=== PATIENT | male | born 1995 | race African-American/Black ===

== ENCOUNTER 2018-06-22 12:49 | Emergency (ER) | payer SELFPAY ==
[~2018-06-22] VITALS: Ht 188 cm; Wt 77.0 kg
[2018-06-22 13:00] VITALS: BP 118/60
[2018-06-22] MEDS ORDERED: ALBU4TAB6 PO (13:03)
== END 2018-06-22 22:45 | disposition left against medical advice (07) ==
LOC: ER 12:49
DX: Z53.21 Procedure and treatment not carried out due to patient leaving prior to being seen by health care provider (principal)

== ENCOUNTER 2023-03-19 14:15 | Emergency (ER) | payer MEDICAID, OTHER ==
[~2023-03-19] VITALS: Ht 177.8 cm; Wt 75.0 kg
[~2023-03-19 14:15] MED LIST: ALBU4TAB6 PO
[2023-03-19 14:26] VITALS: BP 124/78; PULSE 88; RESP 16; TEMP 98.5; O2SAT 99
[2023-03-19] MEDS ORDERED: BACITRACIN ZINC OINT UDPKT TOP ONE (15:00)
[2023-03-19] MEDS ORDERED: LIDOCAINE HCL/PF 1% 10 MG/ML 5ML VIAL INFIL ONE (15:00)
[2023-03-19] MEDS ORDERED: CEPH500T MT (16:09)
[2023-03-19] MEDS ORDERED: SULF1TAB48 MT (16:09)
[2023-03-19] MEDS ORDERED: IBUPROFEN 600MG TABLET PO ONE (16:15)
== END 2023-03-19 16:24 | disposition home or self-care (01) ==
LOC: ER 14:29
DX: L02.411 Cutaneous abscess of right axilla (principal); J45.909 Unspecified asthma, uncomplicated
CPT/HCPCS: 10060; 99283; J3490; Z7610 ×2

== ENCOUNTER 2023-04-09 15:00 | Emergency (ER) | payer OTHER ==
[~2023-04-09] VITALS: Ht 195.6 cm; Wt 77.0 kg
[~2023-04-09 15:00] MED LIST changes: +CEPH500T MT; +SULF1TAB48 MT
[2023-04-09 15:01] VITALS: BP 102/49; PULSE 79; RESP 16; TEMP 98.1; O2SAT 100
[2023-04-09] MEDS ORDERED: FAMOTIDINE 20MG/2ML VIAL IV ONE (15:15)
[2023-04-09] MEDS ORDERED: ONDANSETRON HCL 4MG/2ML INJ IV ONE (15:15)
[2023-04-09] MEDS ORDERED: SODIUM CHLORIDE 0.9% 1,000 ML IV ONE (15:15)
[2023-04-09 18:22] LABS: BASOPHILS % 0.9 % (0.0-2.0); HEMATOCRIT. 38.5 % (42.0-52.0); HEMOGLOBIN. 12.5 g/dL (14.0-18.0); LYMPHOCYTES % 50.6 % (20.0-50.0); MEAN CORPUSCULAR HGB CONC 32.5 g/dL (31.0-37.0); MEAN CORPUSCULAR VOLUME 92.4 fL (80.0-94.0); MEAN PLATELET VOLUME 8.3 fl (7.4-10.4); MONOCYTES % 7.9 % (2.0-8.0); NEUTROPHILS % 34.6 % (40.0-76.0); PLATELET 194 x1000/uL (130-400); RED BLOOD CELL COUNT 4.16 mill/uL (4.7-6.1); RED CELL DISTRIBUTION WIDTH 13.7 % (11.6-14.6); WHITE BLOOD COUNT 4.7 x1000/uL (4.5-11.0)
[2023-04-09 18:36] LABS: ALANINE AMINOTRANSFERASE 118 IU/L (10-49); ASPARTATE AMINOTRANSFERASE 47 IU/L (<34); BILIRUBIN TOTAL 0.9 mg/dL (0.1-1.0); CARBON DIOXIDE 29 mEq/L (21-32); CHLORIDE 105 mEq/L (98-107); CREATININE 0.9 mg/dL (0.6-1.3); GLUCOSE 88 mg/dL (70-105); POTASSIUM 4.5 mEq/L (3.5-5.1); PROTEIN TOTAL 7.5 g/dL (6.0-8.3); SODIUM 139 mEq/L (136-145); UREA NITROGEN BLOOD 15 mg/dL (9-23)
[2023-04-09 18:37] LABS: ETHANOL BLOOD < 10 mg/dL (<10); TROPONIN I HIGH SENSITIVITY < 4 ng/L (3.0-53)
[2023-04-09 19:20] LABS: BETA HYDROXYBUTYRATE < 0.1 mMol/L (0.0-0.3)
== END 2023-04-09 18:09 | disposition left against medical advice (07) ==
LOC: ER 15:00
DX: R10.13 Epigastric pain (principal); J45.909 Unspecified asthma, uncomplicated
CPT/HCPCS: 80053; 82010; 80320; 82962; 83605; 83690; 85025; 84484; 36415; 99283; J7030; G0480

== ENCOUNTER 2023-05-22 14:10 | Emergency (ER) | payer OTHER ==
[~2023-05-22] VITALS: Ht 188 cm; Wt 82.0 kg
[2023-05-22 14:11] VITALS: O2SAT 100
[2023-05-22] MEDS ORDERED: TETANUS, DIPHTHERIA, PERTUSSIS VAC/PF 0.5ML (>10YR OLD) IM ONE (14:30)
[2023-05-22 14:55] LABS: *AMPHETAMINES SCREEN URINE PRESUMPTIVE POSITIVE (NEGATIVE); *BARBITURATES SCREEN URINE NEGATIVE (NEGATIVE); *BENZODIAZEPINES SCREEN URINE NEGATIVE (NEGATIVE); *COCAINE SCREEN URINE NEGATIVE (NEGATIVE); CANNABINOID URINE SCREEN PRESUMPTIVE POSITIVE (NEGATIVE); ECSTASY MDMA SCREEN URINE CONF.TEST INDICATED (NEGATIVE); METHADONE URINE SCREEN Neg (NEGATIVE); OPIATES URINE SCREEN NEGATIVE (NEGATIVE); PHENCYCLIDINE URINE SCREEN NEGATIVE (NEGATIVE)
[2023-05-22 16:47] LABS: BASOPHILS % 0.8 % (0.0-2.0); HEMATOCRIT. 39.2 % (42.0-52.0); HEMOGLOBIN. 13.3 g/dL (14.0-18.0); LYMPHOCYTES % 63.1 % (20.0-50.0); MEAN CORPUSCULAR HEMOGLOBIN 30.6 pg (28.0-32.0); MEAN CORPUSCULAR HGB CONC 33.9 g/dL (31.0-37.0); MEAN CORPUSCULAR VOLUME 90.1 fL (80.0-94.0); MEAN PLATELET VOLUME 8.8 fl (7.4-10.4); MONOCYTES % 7.9 % (2.0-8.0); NEUTROPHILS % 22.2 % (40.0-76.0); PLATELET 179 x1000/uL (130-400); RED BLOOD CELL COUNT 4.35 mill/uL (4.7-6.1); RED CELL DISTRIBUTION WIDTH 13.7 % (11.6-14.6); WHITE BLOOD COUNT 3.6 x1000/uL (4.5-11.0)
[2023-05-22 17:01] LABS: ACETAMINOPHEN < 2 ug/mL (10-30); ALANINE AMINOTRANSFERASE 25 IU/L (10-49); ALBUMIN 3.9 g/dL (3.2-4.8); ASPARTATE AMINOTRANSFERASE 26 IU/L (<34); CALCIUM 8.8 mg/dL (8.7-10.4); CARBON DIOXIDE 26 mEq/L (21-32); CHLORIDE 103 mEq/L (98-107); CREATININE 1.1 mg/dL (0.6-1.3); GLUCOSE 68 mg/dL (70-105); POTASSIUM 4.1 mEq/L (3.5-5.1); PROTEIN TOTAL 7.3 g/dL (6.0-8.3); SODIUM 138 mEq/L (136-145); UREA NITROGEN BLOOD 17 mg/dL (9-23)
[2023-05-22 17:02] LABS: ETHANOL BLOOD < 10 mg/dL (<10)
[2023-05-22 18:51] VITALS: BP 132/72; PULSE 68; RESP 16; TEMP 98.8
== END 2023-05-23 08:10 | disposition home or self-care (01) ==
LOC: ER 14:10
DX: F15.10 Other stimulant abuse, uncomplicated (principal); J45.909 Unspecified asthma, uncomplicated
CPT/HCPCS: 80053; 80305; 80307; 80329; 80320; 85025; 36415; 90715; 90471; 99291; Z7610; G0480

== ENCOUNTER 2024-06-30 15:05 | Emergency (ER) | payer OTHER ==
[~2024-06-30] VITALS: Ht 195.6 cm; Wt 102.1 kg
[2024-06-30 15:21] VITALS: BP 106/74; PULSE 45; RESP 16; TEMP 36.7; O2SAT 100
== END 2024-06-30 19:43 | disposition left against medical advice (07) ==
LOC: ER 15:05
DX: S60.947A Unspecified superficial injury of left little finger, initial encounter (principal); J45.909 Unspecified asthma, uncomplicated; F12.90 Cannabis use, unspecified, uncomplicated; X58.XXXA Exposure to other specified factors, initial encounter; Y93.89 Activity, other specified; Y92.89 Other specified places as the place of occurrence of the external cause; Y99.8 Other external cause status
CPT/HCPCS: 99281

== ENCOUNTER 2024-06-30 20:28 | Emergency (ER) | payer OTHER ==
[~2024-06-30] VITALS: Ht 195.6 cm; Wt 102.0 kg
[2024-06-30 20:38] VITALS: BP 122/78; PULSE 55; RESP 16; TEMP 36.7; O2SAT 100
== END 2024-06-30 23:46 | disposition left against medical advice (07) ==
LOC: ER 20:28
DX: M79.629 Pain in unspecified upper arm (principal); J45.909 Unspecified asthma, uncomplicated; Z53.21 Procedure and treatment not carried out due to patient leaving prior to being seen by health care provider

== ENCOUNTER 2024-07-18 21:41 | Emergency (ER) | payer OTHER ==
[~2024-07-18] VITALS: Ht 185.4 cm; Wt 102.0 kg
[2024-07-18 21:52] VITALS: BP 123/77; PULSE 81; RESP 18; TEMP 37; O2SAT 98
[2024-07-18 22:38] LABS: BASOPHILS % 0.8 % (0.0-2.0); EOSINOPHILS % 12.5 % (0.0-5.0); HEMATOCRIT. 37.3 % (42.0-52.0); HEMOGLOBIN. 12.3 g/dL (14.0-18.0); MEAN CORPUSCULAR HEMOGLOBIN 29.2 pg (28.0-32.0); MEAN CORPUSCULAR HGB CONC 32.9 g/dL (31.0-37.0); MEAN CORPUSCULAR VOLUME 88.7 fL (80.0-94.0); MEAN PLATELET VOLUME 8.9 fl (7.4-10.4); MONOCYTES % 5.3 % (2.0-8.0); NEUTROPHILS % 23.4 % (40.0-76.0); PLATELET 199 x1000/uL (130-400); RED BLOOD CELL COUNT 4.21 mill/uL (4.7-6.1); RED CELL DISTRIBUTION WIDTH 13.6 % (11.6-14.6); WHITE BLOOD COUNT 4.9 x1000/uL (4.5-11.0)
[2024-07-18 22:44] LABS: CHLORIDE 103 mEq/L (98-107); SODIUM 139 mEq/L (136-145)
[2024-07-18 22:45] LABS: CALCIUM 9.1 mg/dL (8.7-10.4); CARBON DIOXIDE 29 mEq/L (21-32)
[2024-07-18 22:50] LABS: GLUCOSE 98 mg/dL (70-105); UREA NITROGEN BLOOD 12 mg/dL (9-23)
== END 2024-07-19 00:41 | disposition home or self-care (01) ==
LOC: ER 21:41
DX: R05.9 Cough, unspecified (principal); R09.89 Other specified symptoms and signs involving the circulatory and respiratory systems; Z79.899 Other long term (current) drug therapy; F15.90 Other stimulant use, unspecified, uncomplicated
CPT/HCPCS: 36415; 71045; 80048; 85025; 99283; 99284

== ENCOUNTER 2024-09-24 13:58 | Emergency (ER) | payer OTHER ==
[~2024-09-24] VITALS: Ht 182.9 cm; Wt 80.0 kg
[2024-09-24 14:00] VITALS: TEMP 36.9; O2SAT 99
[2024-09-24] MEDS ORDERED: LEVETIRACETAM 1,000MG in NACL 100ML PREMIX IV SCH (14:45)
[2024-09-24] MEDS: LEVETIRACETAM 1000MG PREMIX 100 ML IV SCH (15:08)
[2024-09-24 15:11] LABS: EOSINOPHILS % 5.8 % (0.0-5.0); HEMATOCRIT. 39.1 % (42.0-52.0); HEMOGLOBIN. 13.4 g/dL (14.0-18.0); LYMPHOCYTES % 61.1 % (20.0-50.0); MEAN CORPUSCULAR HEMOGLOBIN 29.2 pg (28.0-32.0); MEAN CORPUSCULAR HGB CONC 34.2 g/dL (31.0-37.0); MEAN CORPUSCULAR VOLUME 85.3 fL (80.0-94.0); MEAN PLATELET VOLUME 8.9 fl (7.4-10.4); MONOCYTES % 5.4 % (2.0-8.0); NEUTROPHILS % 26.7 % (40.0-76.0); PLATELET 211 x1000/uL (130-400); RED BLOOD CELL COUNT 4.58 mill/uL (4.7-6.1); RED CELL DISTRIBUTION WIDTH 14.2 % (11.6-14.6); WHITE BLOOD COUNT 4.7 x1000/uL (4.5-11.0)
[2024-09-24 15:21] LABS: CHLORIDE 105 mEq/L (98-107); SODIUM 141 mEq/L (136-145)
[2024-09-24 15:22] LABS: CARBON DIOXIDE 27 mEq/L (21-32)
[2024-09-24 15:23] LABS: CALCIUM 8.9 mg/dL (8.7-10.4)
[2024-09-24 15:26] VITALS: BP 111/65; PULSE 54; RESP 15; O2SAT 96
[2024-09-24 15:27] LABS: CREATININE 1.1 mg/dL (0.6-1.3); GLUCOSE 121 mg/dL (70-105)
[2024-09-24 15:28] LABS: ETHANOL BLOOD < 10 mg/dL (<10); UREA NITROGEN BLOOD 12 mg/dL (9-23)
[2024-09-24] MEDS ORDERED: LEVE500T19 MT (15:40)
== END 2024-09-24 15:48 | disposition home or self-care (01) ==
LOC: ER 13:58
DX: R56.9 Unspecified convulsions (principal); F10.90 Alcohol use, unspecified, uncomplicated; F14.90 Cocaine use, unspecified, uncomplicated; Z79.899 Other long term (current) drug therapy; Y90.9 Presence of alcohol in blood, level not specified
CPT/HCPCS: 80048; 80320; 85025; 36415; 70450; 96365; 99285; J1953; Z7610 ×2; A4606; G0480